=== PATIENT | male | born 1955 | race Hispanic/Latino ===

== ENCOUNTER → 2022-08-16 | Outpatient (CLI) | payer OTHER, MEDICARE ==
[2022-08-16 12:39] LABS: BASOPHILS % (AUTO) 1.1 % (0.0-5.0); HEMATOCRIT 43.6 % (42-54); LYMPHOCYTES % (AUTO) 18.7 % (21.0-51.0); MEAN CORPUSCULAR HEMOGLOBIN 31.2 pg (27.0-33.0); MEAN CORPUSCULAR HGB CONC 33.5 g/dL (32.0-36.0); MEAN CORPUSCULAR VOLUME 93.2 fL (79-99); MONOCYTES % (AUTO) 5.7 % (3.0-13.0); NEUTROPHILS % (AUTO) 68.9 % (40.0-77.0); PLATELET COUNT (AUTO) 363 K/uL (130-400); RED BLOOD CELL COUNT(AUTO) 4.68 MIL/uL (4.50-6.20); RED CELL DISTRIBUTION WIDTH 13.7 % (11.0-15.5)
[2022-08-16 12:54] LABS: ALBUMIN 3.6 g/dL (3.5-5.0); CREATININE 0.9 mg/dL (0.5-1.5); POTASSIUM 4.8 mmol/L (3.5-5.1); THYROID STIMULATING HORMONE 0.61 uIU/mL (0.36-3.74); TOTAL PROTEIN, SERUM 7.4 g/dL (6.0-8.3)
[2022-08-16 13:19] LABS: HEMOGLOBIN A1C 10.2 % (4.0-6.0)
[2022-08-16 13:28] LABS: APPEARANCE,URINE CLEAR (CLEAR); BILIRUBIN,URINE NEGATIVE (NEGATIVE); COLOR,URINE YELLOW (YELLOW); GLUCOSE, URINE (UA) >=1000 mg/dL (NEGATIVE); KETONES,URINE NEGATIVE (NEGATIVE); LEUKOCYTE ESTERASE ,URINE NEGATIVE Leu/uL (NEGATIVE); MUCUS,URINE RARE LPF (None Seen); NITRATE,URINE NEGATIVE (NEGATIVE); OCCULT BLOOD,URINE NEGATIVE (NEGATIVE); PH,URINE 5.5 (5.0-8.0); PROTEIN,URINE NEGATIVE (NEGATIVE); UROBILINOGEN,URINE 0.2 mg/dL (0.2-1.0); WBC,URINE 0-1 /HPF (0-1)
== END | disposition home or self-care (01) ==
LOC: LAB 10:58
PROVIDERS: ATTEND Student in an Organized Health Care Education/Training Program
DX: E78.2 Mixed hyperlipidemia (principal); E11.8 Type 2 diabetes mellitus with unspecified complications; R00.0 Tachycardia, unspecified; R10.9 Unspecified abdominal pain; R06.02 Shortness of breath
CPT/HCPCS: 36415; 80053; 80061; 81001; 83036; 84443; 85025

== ENCOUNTER → 2024-03-31 | Outpatient (CLI) | payer OTHER, MEDICARE ==
[2024-03-31 12:07] LABS: BASOPHILS # (AUTO) 0.12 K/uL (0.00-0.20); BASOPHILS % (AUTO) 1.3 % (0.0-5.0); EOSINOPHILS # (AUTO) 0.44 K/uL (0.00-0.70); EOSINOPHILS % (AUTO) 4.8 % (0.0-8.0); HEMATOCRIT 47.7 % (42-54); IMMATURE GRANULOCYTE ABSOLUTE 0.02 K/uL (0-1); LYMPHOCYTES # (AUTO) 2.1 K/uL (1.0-4.8); LYMPHOCYTES % (AUTO) 22.8 % (21.0-51.0); MEAN CORPUSCULAR HEMOGLOBIN 30.6 pg (27.0-33.0); MEAN CORPUSCULAR HGB CONC 32.9 g/dL (32.0-36.0); MONOCYTES # (AUTO) 0.5 K/uL (0.1-1.0); MONOCYTES % (AUTO) 5.2 % (3.0-13.0); NEUTROPHILS % (AUTO) 65.7 % (40.0-77.0); PLATELET COUNT (AUTO) 313 K/uL (130-400); RED BLOOD CELL COUNT(AUTO) 5.13 MIL/uL (4.50-6.20); RED CELL DISTRIBUTION WIDTH 14.3 % (11.0-15.5); WHITE BLOOD COUNT (AUTO) 9.2 K/uL (4.8-10.8)
[2024-03-31 12:13] LABS: CREATININE 0.8 mg/dL (0.5-1.3); POTASSIUM 4.7 mmol/L (3.5-5.1)
[2024-03-31 12:21] LABS: INR <= 0.93 (0.85-1.15); PROTHROMBIN TIME 10.3 SEC (9.6-11.6)
[2024-03-31 12:22] LABS: PARTIAL THROMBOPLASTIN TIME 28.4 SEC (26.3-35.5)
== END | disposition home or self-care (01) ==
LOC: LAB 10:39
PROVIDERS: ATTEND Internal Medicine Cardiovascular Disease
DX: I73.9 Peripheral vascular disease, unspecified (principal); M79.662 Pain in left lower leg; M79.661 Pain in right lower leg; Z79.899 Other long term (current) drug therapy; Z72.0 Tobacco use
CPT/HCPCS: 36415; 80048; 85025; 85610; 85730

== ENCOUNTER 2024-09-01 05:50 | Day surgery (SDC) | payer OTHER, MEDICARE ==
[2024-08-30 12:45] LABS: BASOPHILS # (AUTO) 0.08 K/uL (0.00-0.20); BASOPHILS % (AUTO) 0.9 % (0.0-5.0); EOSINOPHILS # (AUTO) 0.43 K/uL (0.00-0.70); HEMATOCRIT 44.1 % (42-54); IMMATURE GRANULOCYTE ABSOLUTE 0.04 K/uL (0-1); LYMPHOCYTES # (AUTO) 1.3 K/uL (1.0-4.8); LYMPHOCYTES % (AUTO) 15.7 % (21.0-51.0); MEAN CORPUSCULAR HEMOGLOBIN 30.4 pg (27.0-33.0); MEAN CORPUSCULAR HGB CONC 32.4 g/dL (32.0-36.0); MEAN CORPUSCULAR VOLUME 93.8 fL (79-99); MONOCYTES # (AUTO) 0.5 K/uL (0.1-1.0); NEUTROPHILS # (AUTO) 6.2 K/uL (1.8-7.7); NEUTROPHILS % (AUTO) 71.9 % (40.0-77.0); PLATELET COUNT (AUTO) 283 K/uL (130-400); RED CELL DISTRIBUTION WIDTH 14.8 % (11.0-15.5); WHITE BLOOD COUNT (AUTO) 8.6 K/uL (4.8-10.8)
[2024-08-30 12:46] VITALS: BP 109/53; PULSE 81; RESP 18; TEMP 98.4
[2024-08-30 13:03] LABS: CREATININE 1.1 mg/dL (0.5-1.3); POTASSIUM 5.6 mmol/L (3.5-5.1)
[2024-08-30 13:05] LABS: INR 0.98 (0.85-1.15); PROTHROMBIN TIME 10.6 SEC (9.6-11.6)
[2024-08-30 13:07] LABS: PARTIAL THROMBOPLASTIN TIME 28.1 SEC (26.3-35.5)
--- NOTE | 2024-08-30 15:09 | EKG ---
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
--- NOTE | 2024-08-31 15:01 | NUR ---
REPORT REPORTED BMP TO SILVANO LUZ NP. RECEIVED ORDERS FOR PT TO STOP LISINOPRIL AND REPEAT POTASSIUM IN AM. PT NOTIFIED
[2024-09-01] VITALS (9 sets, daily range): BP systolic 126–154; BP diastolic 66–89; PULSE 62–84; RESP 13–18; TEMP 97.3–97.5
[~2024-09-01] VITALS: Ht 172.7 cm; Wt 89.1 kg
[~2024-09-01 05:50] MED LIST: ATOR40TA71 PO; CILO100T3 PO; CLOP75TA32 PO; EMPA25TA PO; FLUT1BLS3 IH; INSU100V37 SQ; LISI2.5T13 PO; METF-446 PO; PIND10TA2 PO
[2024-09-01] MEDS: 0.9%NACL 1000ML 1,000 ML IV ONE (06:50)
[2024-09-01] MEDS ORDERED: HEParin-NS 1,000 UNIT/500 ML 1,500 ML IV ONE (07:09)
[2024-09-01] MEDS ORDERED: IODIXANOL 320 MG/ML 100 ML VIAL ONE (07:09)
[2024-09-01] MEDS ORDERED: NITROGLYCERIN 50MG VIAL ONE ×2 (07:09→08:25)
[2024-09-01] MEDS ORDERED: LIDOCAINE HCL 400MG/20ML VIAL ONE (07:09)
[2024-09-01] MEDS ORDERED: HEParin 10,000 UNIT/10ML (1,000 UNIT/ML) VIAL ONE (07:09)
[2024-09-01] MEDS ORDERED: FENTanyl CITRate PF 50 MCG/1 ML 2ML VIAL ONE (07:33)
[2024-09-01] MEDS ORDERED: MIDAZOLAM HCL 1 MG/ML 2ML VIAL ONE ×2 (07:34→08:43)
[2024-09-01] MEDS ORDERED: niCARDIpine 25MG INJ IV ONE (07:43)
[2024-09-01] MEDS ORDERED: cloPIDOgrel 300MG TAB ONE (08:07)
[2024-09-01] MEDS ORDERED: ASPIRIN 325MG EC TAB PO ONE (08:08)
[2024-09-01] MEDS ORDERED: ondanSETRON 4MG INJ ONE (08:54)
--- NOTE | 2024-09-01 09:57 | PRN ---
Procedure:Peripheral Angiogram Procedure Note Procedure Note: Peripheral Angiogram Date/Time of Service: 09/01/2024 Referring Physician: Dr. Domínguez Procedures Performed: Lower abdominal aortogram, peripheral angiogram with lower extremity arterial runoff, orbital atherectomy, balloon lithotripsy, and balloon angioplasty of the proximal, mid, and distal right anterior tibial artery Indications for Procedure: PAD, [place] category 5 symptoms Description of Procedure: [After informed consent was obtained the patient was prepped and draped in the usual sterile fashion a 6 Norwegian arterial sheath with a hemostatic valve was inserted into the left common femoral artery using a modified Salinger technique on the first past front wall puncture. A 5 Norwegian Omni Flush catheter was then advanced over a soft angled Glidewire into the abdominal aorta and a lower abdominal aortogram with runoff was obtained. The findings are listed below. The Omni flush catheter was then advanced to the right common femoral artery and a right lower extremity arterial runoff was obtained. The findings are listed below.] Findings: Lower abdominal aorta: patent Right common iliac artery: patent Right external iliac artery: patent Right internal iliac artery: patent Right common femoral artery: patent Right profunda artery: patent Right superficial femoral artery: patent with 30% stenosis in the mid segment of the artery Right popliteal artery: patent Right anterior tibial artery: 90% stenosis in the proximal segment of the artery. 100% stenosis (SHUTTLE FIXER = 150mm) in the midsegment of the artery. The artery reconstitutes distally via collateral blood flow Right tibial peroneal artery: patent Right peroneal artery: patent Right posterior tibial artery: 100% stenosis (SHUTTLE FIXER = 200mm) in the ostial segment of the artery. The artery reconstitutes distally via collateral blood flow Right pedal arch: Incomplete with brisk single-vessel runoff supplying the anterior and posterior segments of the pedal arch. Left common iliac artery: patent Left external iliac artery: patent Left internal iliac artery: patent Left common femoral artery: patent Left profunda artery: patent Intervention: After reviewing the above-mentioned findings decision was made to intervene in the right anterior tibial artery. The South angled glidewire was inserted into the Omni flush catheter was advanced to the right popliteal artery. The Omni flush catheter was then removed and the short six Norwegian arterial sheath was exchanged for a 65 cm six Norwegian destination arterial sheath, which was then placed in the mid right superficial femoral artery. We then administered heparin 75 units/kg, clopidogrel 300 mg x 1 dose. We then advanced a 0.014 whisper guidewire and 0.014 quick cross guide catheter across the area of stenosis and into the distal right dorsalis pedis artery. We then removed the whisper guidewire injected contrast to ensure that we were in the true lumen of the dorsalis pedis artery. We then inserted a Viper guidewire into the quick cross catheter and advanced it into the distal right dorsalis pedis artery. We then removed the quick cross guide catheter and performed multiple passes of orbital atherectomy (CSI 1.25 micro) in the proximal, mid, and distal right anterior tibial artery. We then performed balloon lithotripsy (shockwave 2.5 x 40 mm) and balloon angioplasty (chocolate 3.0 x 120 mm) in the proximal, mid, and distal right anterior tibial artery. Repeat angiography was then performed and revealed the widely patent right anterior tibial artery and brisk two-vessel runoff supplying the anterior and posterior segments of the right pedal arch. The Viper wire and 65 cm six Norwegian destination arterial sheath were then removed and the arteriotomy site in the left common femoral artery was successfully closed using a six Norwegian Angio-Seal device. The patient tolerated the procedure well without issue. Estimated Blood Loss: [40]mL Complications: [ None] Conclusion: 1. PAD, [place] category 5 symptoms, 100% stenosis in the right anterior tibial artery status post successful treatment with orbital atherectomy, balloon lithotripsy, and balloon angioplasty, resulting in the widely patent artery, with a dissection, or perforation, and brisk two-vessel runoff supplying the right foot/pedal arch. 2. Residual PAD, 100% stenosis in the ostial right posterior tibial artery and severe stenosis in the left superficial femoral artery. 3. PAD, status post successful treatment with orbital atherectomy balloon angioplasty and drug coated balloon angioplasty of the right tibioperoneal artery and proximal right peroneal artery done in February of 2024 4. Tobacco abuse Recommendations/Instructions: 1. Continue goal-directed medical therapy. 2. Continue clopidogrel 75 mg daily and cilostazol 100 mg BID. 3. Groin precautions 4. 4 hours of bedrest 5. Start NS at 100 mL/hour x3 hours. 6. Okay to DC if the left groin is soft, and free of bruising, bleeding, and or hematoma formation. 7. No driving for the next 48 hours 8. No heavy lifting or strenuous exercise for the next two weeks 9. We will bring the patient back within the next two weeks to address the stenosis in the left superficial femoral artery 10. Please schedule the patient for a follow-up appointment in 3-4 weeks. JENISE DOMÍNGUEZ MD Sep 01, 2024 09:57
[2024-09-01] MEDS ORDERED: GLUCAGON 1MG KIT 1 MG ML IM PRN (10:00)
[2024-09-01] MEDS ORDERED: 0.9%NACL 1000ML 1,000 ML IV SCH (10:00)
[2024-09-01] MEDS ORDERED: DEXTROSE 50%-WATER 50 ML DISP.SYRIN IV PRN (10:00)
== END 2024-09-01 13:18 | disposition home or self-care (01) ==
LOC: DAH 05:50
PROVIDERS: ATTEND Internal Medicine Cardiovascular Disease
DX: E11.51 Type 2 diabetes mellitus with diabetic peripheral angiopathy without gangrene (principal); I70.92 Chronic total occlusion of artery of the extremities; I70.211 Atherosclerosis of native arteries of extremities with intermittent claudication, right leg; E78.5 Hyperlipidemia, unspecified; R00.0 Tachycardia, unspecified; Z72.0 Tobacco use; Z98.890 Other specified postprocedural states; Z79.01 Long term (current) use of anticoagulants; Z79.899 Other long term (current) drug therapy
CPT/HCPCS: 80048; 85025; 85610; 85730; 36415 ×2; 93005; 75630; 84132; 83880; 82948 ×2; C9774; C1887; C1894 ×2; C1769 ×3; C1760; C1893; C1724; C1725 ×2; J3010; J3490 ×4; J7030; J1644 ×2; J2250 ×2; J2405; Q9967; A4215; A4222; A4221; A4663; A4216; A4606; A4223 ×3; 75716; 96360; 96361; 99156; 99157

== ENCOUNTER 2025-01-03 05:48 | Day surgery (SDC) | payer OTHER, MEDICARE ==
[2024-12-30 09:55] VITALS: BP 111/57; PULSE 84; RESP 16; TEMP 97.2
[2024-12-30 09:57] LABS: BASOPHILS # (AUTO) 0.12 K/uL (0.00-0.20); BASOPHILS % (AUTO) 1.6 % (0.0-5.0); EOSINOPHILS # (AUTO) 0.39 K/uL (0.00-0.70); EOSINOPHILS % (AUTO) 5.1 % (0.0-8.0); HEMATOCRIT 45.9 % (42-54); IMMATURE GRANULOCYTE ABSOLUTE 0.02 K/uL (0-1); LYMPHOCYTES # (AUTO) 1.4 K/uL (1.0-4.8); LYMPHOCYTES % (AUTO) 18.2 % (21.0-51.0); MEAN CORPUSCULAR HEMOGLOBIN 31.4 pg (27.0-33.0); MEAN CORPUSCULAR HGB CONC 32.7 g/dL (32.0-36.0); MEAN CORPUSCULAR VOLUME 96.2 fL (79-99); MONOCYTES # (AUTO) 0.5 K/uL (0.1-1.0); MONOCYTES % (AUTO) 6.1 % (3.0-13.0); NEUTROPHILS # (AUTO) 5.3 K/uL (1.8-7.7); NEUTROPHILS % (AUTO) 68.7 % (40.0-77.0); PLATELET COUNT (AUTO) 304 K/uL (130-400); RED BLOOD CELL COUNT(AUTO) 4.77 MIL/uL (4.50-6.20); RED CELL DISTRIBUTION WIDTH 14.3 % (11.0-15.5); WHITE BLOOD COUNT (AUTO) 7.7 K/uL (4.8-10.8)
[2024-12-30 10:07] LABS: PROTHROMBIN TIME 10.6 SEC (9.6-11.6)
[2024-12-30 10:08] LABS: PARTIAL THROMBOPLASTIN TIME 28.8 SEC (26.3-35.5)
[2024-12-30 10:12] LABS: CREATININE 0.9 mg/dL (0.5-1.3)
[2024-12-30 10:18] LABS: B-TYPE NATRIURETIC PEPTIDE 25 pg/mL (0-100)
--- NOTE | 2024-12-30 10:38 | HMCIMG ---
Exam Type: CHEST 1VW Clinical Information: PRE OP Comparison: None Findings: The lungs are clear of infiltrates. The heart is normal in size. The bony and soft tissue structures of the chest are unremarkable. Impression: Clear lungs.
--- NOTE | 2024-12-30 13:39 | EKG ---
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
[2025-01-03] VITALS (11 sets, daily range): BP systolic 122–149; BP diastolic 69–87; PULSE 77–89; RESP 15–20; TEMP 97.4–97.9
[~2025-01-03] VITALS: Ht 172.7 cm; Wt 86.0 kg
[~2025-01-03 05:48] MED LIST changes: -METF-446 PO; +TETR-68 PO; +TIRZ2.5P SQ
[2025-01-03] MEDS ORDERED: LIDOCAINE HCL 400MG/20ML VIAL ONE (07:14)
[2025-01-03] MEDS ORDERED: IODIXANOL 320 MG/ML 100 ML VIAL ONE (07:14)
[2025-01-03] MEDS ORDERED: HEParin 10,000 UNIT/10ML (1,000 UNIT/ML) VIAL ONE ×2 (07:15→09:02)
[2025-01-03] MEDS ORDERED: HEParin-NS 1,000 UNIT/500 ML 1,000 ML IV ONE (07:15)
[2025-01-03] MEDS ORDERED: NITROGLYCERIN 50MG VIAL ONE ×2 (07:16→08:58)
[2025-01-03] MEDS ORDERED: FENTanyl CITRate PF 50 MCG/1 ML 2ML VIAL ONE ×2 (07:33→08:41)
[2025-01-03] MEDS ORDERED: MIDAZOLAM HCL 1 MG/ML 2ML VIAL ONE ×3 (07:33→09:21)
[2025-01-03] MEDS ORDERED: niCARDIpine 25MG INJ IV ONE (07:38)
[2025-01-03] MEDS: 0.9%NACL 1000ML 1,000 ML IV SCH (08:46)
[2025-01-03] MEDS ORDERED: ASPIRIN 325MG EC TAB PO ONE (09:39)
[2025-01-03] MEDS ORDERED: cloPIDOgrel 300MG TAB ONE (09:40)
--- NOTE | 2025-01-03 10:22 | PRN ---
Procedure:Peripheral Angiogram Procedure Note Procedure Note: Peripheral Angiogram Date/Time of Service: 01/03/2025 Referring Physician: Dr. Domínguez Procedures Performed: Lower abdominal aortogram, peripheral angiogram with lower extremity arterial runoff, orbital atherectomy, balloon lithotripsy, enteric-coated balloon angioplasty, of the proximal, mid, and distal left superficial femoral artery Indications for Procedure: PAD, [place] category five symptoms (left lower extremity) Tinea pedis multiple digits in the left lower extremity PAD, status post peripheral intervention the artery in the right lower extremity (most recently in August of 2024) Tobacco abuse Description of Procedure: [After informed consent was obtained the patient was prepped and draped in the usual sterile fashion a 6 Gibraltarian arterial sheath with a hemostatic valve was inserted into the right common femoral artery using a modified Salinger technique on the first pass front wall puncture. A 5 Gibraltarian Omni Flush catheter was then advanced over a soft angled Glidewire into the abdominal aorta and a lower abdominal aortogram with runoff was obtained. The findings are listed below.] Findings: Lower abdominal aorta: patent Right common iliac artery: patent Right external iliac artery: patent Right internal iliac artery: patent Right common femoral artery: patent Right profunda artery: patent Left common iliac artery: patent with 30% stenosis Left external iliac artery: patent Left internal iliac artery: patent Left common femoral artery: patent Left profunda artery: patent Left superficial femoral artery: 80% stenosis in the proximal and mid segments of the artery. 100% stenosis (SYSTEMS TRAINER = 60mm) in the distal segment of the artery. The artery reconstitutes distally via collateral blood flow Left popliteal artery: 90% stenosis in the distal segment of the artery Left anterior tibial artery: Diffuse 90% stenosis in the proximal segment of the artery Left tibioperoneal artery: 90% stenosis in the mid segment of the artery Left peroneal artery: patent Left posterior tibial artery: 100% stenosis (SYSTEMS TRAINER > 240mm) in the proximal segments of the artery. The artery does not reconstitute distally Pedal arch: Incomplete slow single-vessel runoff supplying the anterior segment of the left foot/pedal arch Intervention: After reviewing the above-mentioned findings the decision was made to intervene on the left superficial femoral artery. The soft angled Glidewire was inserted into the Omni flush catheter was advanced to the mid left superficial femoral artery. The Omni flush catheter was then removed and the short six Gibraltarian arterial sheath was exchanged for a 45 cm six Gibraltarian destination arterial sheath, which was then placed in the left common femoral artery. We then administered heparin 75 units/kg, clopidogrel 600 mg x 1 dose and aspirin 325 mg x 1 dose. We then advanced a 0.018 command 18 guidewire and 0.018 Navicross catheter and attempted to cross the SYSTEMS TRAINER in the distal left superficial femoral artery, but were unsuccessful. We then exchanged the command guidewire for a 0.018 Astato 30gm guidewire and were able to cross the SYSTEMS TRAINER. We then advanced both the guidewire and Navicross catheter into the proximal left peroneal artery. We then removed the Astato guidewire and injected contrast into the Navicross catheter which ensured that were in the true lumen of the left peroneal artery. We then advanced a Viper guidewire into the catheter and advanced it into the distal left peroneal artery. We then removed the Navicross catheter and performed multiple passes of orbital atherectomy (CSI 1.5 mm solid) in the proximal, mid, and distal segments of the left superficial femoral artery. We then performed balloon lithotripsy (shockwave 6.0 x 60 mm) and drug coated balloon angioplasty (Halfpenny [employer] Inpact 6.0 x 250 and 6.0 x 80 mm) in the proximal, mid, and distal segments of the left superficial femoral artery. The balloons were then removed and repeat angiography was performed, which revealed a widely patent left superficial femoral artery, without significant dissection, or perforation, and improved two-vessel runoff supplying the left foot/pedal arch. We then removed the Viper wire and 45 cm six Gibraltarian destination arterial sheath. The arteriotomy site in the right common femoral artery was successfully closed using a six Gibraltarian Angio-Seal device. The patient tolerated the procedure well and without issue. Estimated Blood Loss: [40]mL Complications: [ None] Conclusion: 1. PAD, [place] category five symptoms (left lower extremity), 80% stenosis in the proximal and mid left superficial femoral artery and 100% stenosis in the distal left superficial femoral artery status post successful treatment with orbital atherectomy, balloon lithotripsy, and drug coated balloon angioplasty, resulting in a widely patent artery, without significant dissection or perforation and improved two-vessel runoff supplying the left foot/pedal arch 2. Residual PAD, 90% stenosis in the distal left popliteal artery, diffuse 90% stenosis in the proximal left anterior tibial artery, 90% stenosis in the left tibioperoneal artery and 100% stenosis in the in the left posterior tibial artery. 3. Tinea pedis affecting multiple digits of the left foot 4. PAD, status post peripheral intervention the artery in the right lower extremity (most recently in August of 2024) 5. Tobacco abuse Recommendations/Instructions: 1. Continue goal-directed medical therapy. 2. Start clopidogrel 75 mg daily. Continue cilostazol 100 mg BID. 3. Groin precautions 4. 4 hours of bedrest 5. Start NS at 100 mL/hour x3 hours. 6. Okay to DC, as long as bedrest is complete and the right groin is soft, and free of bruising, bleeding, and or hematoma formation. 7. No driving for the next 48 hours. 8. No heavy lifting or strenuous exercise for the next two weeks. 9. We will bring the patient back within the next two weeks to address a residual PAD in the left-sided infrapopliteal arteries. 10. Please have the patient follow up with Dr. Domínguez in 3-4 weeks. JENISE DOMÍNGUEZ MD Jan 03, 2025 10:22
[2025-01-03] MEDS ORDERED: GLUCAGON 1MG KIT 1 MG ML IM PRN (10:30)
[2025-01-03] MEDS ORDERED: DEXTROSE 50%-WATER 50 ML DISP.SYRIN IV PRN (10:30)
[2025-01-03] MEDS ORDERED: 0.9%NACL 1000ML 1,000 ML IV SCH (10:30)
== END 2025-01-03 14:00 | disposition home or self-care (01) ==
LOC: DAH 05:48
PROVIDERS: ATTEND Internal Medicine Cardiovascular Disease
DX: E11.51 Type 2 diabetes mellitus with diabetic peripheral angiopathy without gangrene (principal); I73.9 Peripheral vascular disease, unspecified; I70.202 Unspecified atherosclerosis of native arteries of extremities, left leg; I70.92 Chronic total occlusion of artery of the extremities; E11.622 Type 2 diabetes mellitus with other skin ulcer; L97.828 Non-pressure chronic ulcer of other part of left lower leg with other specified severity; I10 Essential (primary) hypertension; E78.5 Hyperlipidemia, unspecified; R00.0 Tachycardia, unspecified; Z72.0 Tobacco use; Z79.01 Long term (current) use of anticoagulants; Z79.899 Other long term (current) drug therapy; Z98.890 Other specified postprocedural states
CPT/HCPCS: 80048; 83880; 85025; 85610; 85730; 36415; 71045; 93005; 75630; 85347 ×2; 82948; A4223 ×2; C1725; C1894 ×2; C1769 ×4; C1887; C1760; C1893; C1724; C2623 ×2; C9766; J3010 ×2; J3490 ×4; J7030; J1644 ×3; J2250 ×3; Q9967; A4215; A4222; A4221; A4663; A4216; A4606; 75716; 96360; 96361; 99156; 99157; C9764

== ENCOUNTER 2025-06-02 06:03 | Day surgery (SDC) | payer OTHER, MEDICARE ==
[2025-05-31 11:48] LABS: IMMATURE GRANULOCYTE ABSOLUTE 0.03 K/uL (0-1); NUCLEATED RED BLOOD CELLS 0.0 % (0.0-0.19); PLATELET COUNT (AUTO) 273 K/uL (130-400); RED BLOOD CELL COUNT(AUTO) 4.93 MIL/uL (4.50-6.20); RED CELL DISTRIBUTION WIDTH 14.3 % (11.0-15.5); WHITE BLOOD COUNT (AUTO) 7.7 K/uL (4.8-10.8)
--- NOTE | 2025-05-31 11:54 | EKG ---
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
[2025-05-31 11:55] VITALS: BP 120/57; PULSE 82; RESP 17; TEMP 98.1
[2025-05-31 11:56] LABS: CREATININE 0.9 mg/dL (0.5-1.3); GLOMERULAR FILTR. RATE CALC 91.0 mL/min (>90); SODIUM SERUM 138.0 mmol/L (136-145); UREA NITROGEN, BLOOD 18.0 mg/dL (7-18)
[2025-05-31 11:58] LABS: INR 0.97 (0.85-1.15)
[2025-05-31 12:13] LABS: GLUCOSE,RANDOM 237.0 mg/dL (70-105)
[2025-05-31 12:27] LABS: APPEARANCE,URINE CLEAR (CLEAR); GLUCOSE, URINE (UA) >=1000 mg/dL (NEGATIVE); LEUKOCYTE ESTERASE ,URINE NEGATIVE Leu/uL (NEGATIVE); NITRATE,URINE NEGATIVE (NEGATIVE); OCCULT BLOOD,URINE NEGATIVE (NEGATIVE)
[2025-05-31 12:28] LABS: ADD UA MICROSCOPIC YES
--- NOTE | 2025-05-31 21:12 | HMCIMG ---
EXAM: CR Chest, 1 view CLINICAL HISTORY: Preoperative evaluation. COMPARISON: Chest radiograph dated 12/30/2024. FINDINGS: There are nodular opacities on the left side, measuring 0.4 cm at the apex and 0.8 cm at the base. The lungs show no infiltrates or other acute findings. No pleural effusion or pneumothorax. The cardiomediastinal silhouette is within normal limits. Mild atherosclerotic aorta. No acute osseous abnormality. Multiple old healed left rib fractures. IMPRESSION: No acute cardiopulmonary process is evident. Stable nodular opacities in the left lung. No interval changes. /[place]
--- NOTE | 2025-06-01 10:09 | NUR ---
REPORT REPORTED POTASSIUM LEVEL TO SILVANO LUZ NP. RECEIVED ORDERS TO REPEAT POTASSIUM IN AM
[~2025-06-02] VITALS: Ht 172.7 cm; Wt 81.0 kg
[2025-06-02] VITALS (10 sets, daily range): BP systolic 104–147; BP diastolic 58–85; PULSE 61–80; RESP 11–16; TEMP 96.9–97
[~2025-06-02 06:03] MED LIST changes: +ATOR10 PO; -ATOR40TA71 PO; -FLUT1BLS3 IH; -LISI2.5T13 PO; +PANT40TA54 PO; -PIND10TA2 PO; +PIND10TA8 PO; +PREG75CA76 PO; -TETR-68 PO; -TIRZ2.5P SQ; +TIRZ5PEN SQ
[2025-06-02] MEDS: 0.9%NACL 1000ML 1,000 ML IV SCH (06:57)
[2025-06-02] MEDS ORDERED: LIDOCAINE HCL 400MG/20ML VIAL ONE (07:12)
[2025-06-02] MEDS ORDERED: IODIXANOL 320 MG/ML 100 ML VIAL ONE (07:12)
[2025-06-02] MEDS ORDERED: NITROGLYCERIN 50MG VIAL ONE ×2 (07:13→08:52)
[2025-06-02] MEDS ORDERED: HEParin-NS 1,000 UNIT/500 ML 1,000 ML IV ONE (07:13)
[2025-06-02] MEDS ORDERED: MIDAZOLAM HCL 1 MG/ML 2ML VIAL ONE ×2 (07:37→09:04)
[2025-06-02] MEDS ORDERED: GLUCAGON 1MG KIT 1 MG ML IM PRN (10:30)
[2025-06-02] MEDS ORDERED: 0.9%NACL 1000ML 1,000 ML IV SCH (10:30)
[2025-06-02] MEDS ORDERED: DEXTROSE 50%-WATER 50 ML DISP.SYRIN IV PRN (10:30)
--- NOTE | 2025-06-02 10:31 | PRN ---
Procedure:Peripheral Angiogram Procedure Note Procedure Note: Peripheral Angiogram Date/Time of Service: 06/02/2025 Referring Physician: Dr. Domínguez Procedures Performed: Lower abdominal aortogram, peripheral angiogram with lower extremity arterial runoff, orbital atherectomy, balloon angioplasty, balloon lithotripsy, in the ostial, proximal, mid, and distal left anterior tibial artery, DEEDEE placement in the ostial left anterior tibial artery Indications for Procedure: PAD, [place] category 3 symptoms affecting the left lower extremity PAD, 90% stenosis in the distal left popliteal artery, 95% stenosis in the left tibioperoneal artery, diffuse 90% stenosis in the proximal left peroneal artery status post successful treatment with orbital atherectomy (CSI 1.25 mm solid), balloon lithotripsy (shockwave 4.0 x 80 mm) and drug coated balloon angioplasty (FuturaMed[employer]ronic inpact 4.0 x 80mm) resulting in widely patent arteries, without dissection, or perforation, and brisk single-vessel runoff supplying the left foot/pedal arch done on 02/08/2025 Tinea pedis affecting multiple digits in the left foot Ingrown toe nails, pending surgical removal PAD s/p peripheral intervention of the proximal, mid, and distal left super ficial femoral artery then on 01/03/2025 PAD s/p peripheral intervention of the right-sided arteries Tobacco abuse [After informed consent was obtained the patient was prepped and draped in the usual sterile fashion a 6 Niuean arterial sheath with a hemostatic valve was inserted into the right common femoral artery using a modified Salinger technique on the first past front wall puncture. A 5 Niuean Omni Flush catheter was then advanced over a soft angled Glidewire into the abdominal aorta and a lower abdominal aortogram with runoff was obtained. The findings are listed below. The Omni flush catheter was then advanced to the left common femoral artery on left lower extremity arteriogram was obtained. The findings are listed below.] Findings: Lower abdominal aorta: patent Right common iliac artery: 20% stenosis in the ostial segment of the artery Right external iliac artery: patent Right internal iliac artery: patent Right common femoral artery: patent Right profunda artery: patent Left common iliac artery: patent Left external iliac artery: patent Left internal iliac artery: patent Left common femoral artery: patent Left profunda artery: patent Left superficial femoral artery: patent Left popliteal artery: widely patent Left anterior tibial artery: 95% stenosis in the ostial segment of the artery. Diffuse 90-95% stenosis in the proximal, mid and distal segments of the artery Left tibioperoneal artery: widely patent Left peroneal artery: widely patent Left posterior tibial artery: 100% stenosis (SEXUAL ABUSE COUNSELLOR > 200mm) in the mid segment of the artery. The artery does not reconstitute distally via collateral blood flow Left Pedal arch: Incomplete, with brisk single-vessel runoff supplying the anterior and posterior segments of the left pedal arch Intervention: After reviewing the above-mentioned findings the decision was made to intervene on the left anterior tibial artery. The soft angled Glidewire was inserted into the Omni flush catheter and was advanced to the mid left superficial femoral artery. The Omni flush catheter was then removed. The short six Niuean arterial sheath was exchanged for a 65 cm six Niuean destination arterial sheath, which was then placed in the mid left superficial femoral artery. We then administered heparin 75 units/kg x1 dose, and clopidogrel 300 mg x 1 dose. We then advanced a 0.014 whisper guidewire and 0.014 quick cross catheter across the area of stenosis into the distal left dorsalis pedis artery. We then removed the wire and injected contrast into the quick cross catheter to ensure that we were in the true lumen of the left dorsalis pedis artery. Once this was completed we advanced a Viper wire into the Omni flush catheter and into the distal segment of the left dorsalis pedis artery. We then removed the quick cross catheter and performed multiple passes of orbital atherectomy at different speeds (20748, 63136 krpm.) (CSI 1.25 solid) in the proximal, mid, and distal left anterior tibial artery. We then performed balloon angioplasty (2.0-1.5 x 210mm) and balloon lithotripsy (shockwave 3.0 x 80 mm) in the ostial, proximal, mid, and distal left anterior tibial artery. We then successfully deployed a DEEDEE (Esprit 3.5 x 38mm) in the ostial left anterior tibial artery. Repeat angiography then revealed widely patent stent in the ostial left anterior tibial artery and a widely patent proximal, mid, and distal left anterior tibial artery, without significant dissection, or perforation, and brisk two-vessel runoff supplying the left foot/pedal arch. The Viper wire and 65 cm six Niuean destination arterial sheath were then removed and the arteriotomy site in the right common femoral artery was successfully closed using a six Niuean Angio- Seal device. The patient tolerated the procedure well and without issue. Estimated Blood Loss: [30]mL Complications: [ None] Conclusion: 1. PAD, [place] category 3 symptoms, 95% stenosis in the ostial left anterior tibial artery status post successful treatment with balloon angioplasty, balloon lithotripsy, and DEEDEE placement (Esprit 3.5 x 38mm), diffuse 90-95% in the proximal, mid, and distal left anterior tibial artery status post successful treatment with orbital atherectomy (CSI 1.25 mm solid), balloon angioplasty, balloon lithotripsy, resulting in a widely patent artery, without significant dissection, or perforation, and brisk two-vessel runoff supplying the left foot/pedal arch. 2. PAD, 90% stenosis in the distal left popliteal artery, 95% stenosis in the left tibioperoneal artery, diffuse 90% stenosis in the proximal left peroneal artery status post successful treatment with orbital atherectomy (CSI 1.25 mm solid), balloon lithotripsy (shockwave 4.0 x 80 mm) and drug coated balloon angioplasty (Medtronic inpact 4.0 x 80mm) resulting in widely patent arteries done on 02/08/2025 3. Tinea pedis affecting multiple digits in the left foot 4. Ingrown toe nails, pending surgical removal 5. PAD s/p peripheral intervention of the proximal, mid, and distal left superficial femoral artery then on 01/03/2025 6. PAD s/p peripheral intervention of the right-sided arteries 7. Tobacco abuse Recommendations/Instructions: 1. Continue goal-directed medical therapy. 2. Continue cilostazol 100 mg BID and clopidogrel 75 mg daily. 3. Groin precautions 4. 4 hours of bedrest 5. Start NS at 100 mL/hour x3 hours. 6. Okay to DC as long as the right groin is soft, and free of bruising, bleeding, and or hematoma formation. 7. No driving for the next 48 hours. 8. Please have the patient follow up with Dr. Domínguez in 1-2 weeks. JENISE DOMÍNGUEZ MD Jun 02, 2025 10:31
--- NOTE | 2025-06-02 12:23 | NUR ---
Femoral dressing clean, dry and intact. No bleeding, bruising or issue. No evidence of hematoma. Educated Patient of importance of not bending right leg and POC until discharge. Voiced understanding in full. Reminded him to try to relax and keep leg still. Patient voiced understanding. HOB at 20'. Sr's up x 2. Call light in reach. Reported off in full to Spike NGUYEN.
--- NOTE | 2025-06-02 13:57 | NUR ---
PT AND FRIEND GIVEN VERBAL AND WRITTEN DISCHARGE INSTRUCTIONS IV REMOVED SITE ASYMPTOMATIC. PT TAKEN OUT VIA WHEELCHAIR FRIEND DRIVING
== END 2025-06-02 13:58 | disposition home or self-care (01) ==
LOC: DAH 06:03
PROVIDERS: ATTEND Internal Medicine Cardiovascular Disease
DX: E11.51 Type 2 diabetes mellitus with diabetic peripheral angiopathy without gangrene (principal); I70.203 Unspecified atherosclerosis of native arteries of extremities, bilateral legs; E78.5 Hyperlipidemia, unspecified; R00.0 Tachycardia, unspecified; B35.3 Tinea pedis; Z98.890 Other specified postprocedural states; Z72.0 Tobacco use; Z79.899 Other long term (current) drug therapy; Z79.01 Long term (current) use of anticoagulants
CPT/HCPCS: 80048; 83880; 85025; 85610; 85730; 81001; 36415 ×2; 71045; 93005; 75625; 75716; 99156; 99157 ×5; 84132; 82948 ×2; C9775; C1887; C1725 ×2; C1874; C1894 ×2; C1769 ×3; C1760; C1893; C1724; J3010 ×2; J3490 ×4; J1644 ×2; J2250 ×2; Q9967; A4215; A4222; A4221; A4663; A4216; A4606; A4223 ×3; 96360; 96361